=== PATIENT | female | born 2000 | race African-American/Black ===

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

== ENCOUNTER 2021-04-22 19:28 | Emergency (ER) | payer OTHER ==
[~2021-04-22] VITALS: Ht 152.4 cm; Wt 50.0 kg
[2021-04-22 20:06] VITALS: Ht 152.4 cm; Wt 50.0 kg
[2021-04-22] MEDS ORDERED: OMNICEF300 MG PO (23:16)
[2021-04-22 23:35] VITALS: BP 121/68
== END 2021-04-22 23:36 | disposition home or self-care (01) ==
LOC: D.ER 19:28
DX: H66.90 Otitis media, unspecified, unspecified ear (principal)